=== PATIENT | male | born 1990 | race African-American/Black ===

== ENCOUNTER 2017-01-09 21:39 | Emergency (ER) | payer BC | END 2017-01-09 23:00 | disposition left against medical advice (07) | LOC: ER 21:39 | DX: Z53.21 Procedure and treatment not carried out due to patient leaving prior to being seen by health care provider (principal) ==

== ENCOUNTER 2017-02-11 06:18 | Emergency (ER) | payer BC ==
[2017-02-11] MEDS ORDERED: VANCOMYCIN HCL INJ 1000 MG VIAL IV ONE (07:20)
[2017-02-11] MEDS ORDERED: NORMAL SALINE 1000 ML 1,000 ML IV ONE (07:20)
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
[2017-02-11] MEDS ORDERED: ACETAMINOPHEN 325 MG TABLET PO ONE (07:30)
[2017-02-11] MEDS ORDERED: IBUPROFEN 600 MG TABLET PO ONE (07:30)
[2017-02-11 08:27] LABS: ABSOLUTE EOSINOPHILS # (AUTO) 0.1 10^3/uL (0.0-0.6); ABSOLUTE LYMPHOCYTES (AUTO) 1.6 10^3/uL (0.5-4.7); ABSOLUTE MONOCYTES (AUTO) 1.6 10^3/uL (0.1-1.4); ABSOLUTE NEUT (AUTO) 10.6 10^3/uL (1.7-8.2); BASOPHILS % (AUTO) 0.3 % (0-2); EOSINOPHILS % (AUTO) 0.4 % (0-6); HEMATOCRIT 42.9 % (37.9-51.0); HEMOGLOBIN 14.5 g/dL (13.5-17.0); HGB HCT DIFFERENCE 0.6; LYMPHOCYTES % (AUTO) 11.6 % (13-45); MEAN CORPUSCULAR HEMOGLOBIN 29.9 pg (27.0-33.4); MEAN CORPUSCULAR HGB CONC 33.8 g/dL (32.0-36.0); MEAN CORPUSCULAR VOLUME 89 fl (80-97); MONOCYTES % (AUTO) 11.4 % (3-13); RED BLOOD COUNT 4.85 10^6/uL (4.35-5.55); RED CELL DISTRIBUTION WIDTH 14.2 % (11.5-14.0); SEGMENTED NEUTROPHILS % (AUTO) 76.3 % (42-78); WHITE BLOOD COUNT 13.8 10^3/uL (4.0-10.5)
[2017-02-11 08:43] LABS: ALANINE AMINOTRANSFERASE 30 U/L (21-72); ALBUMIN 4.4 g/dL (3.5-5.0); ALKALINE PHOSPHATASE 74 U/L (38-126); ANION GAP 14 (5-19); ASPARTATE AMINO TRANSFERASE 25 U/L (17-59); BILIRUBIN,DIRECT 0.4 mg/dL (0.0-0.4); BILIRUBIN,TOTAL 0.9 mg/dL (0.2-1.3); BLOOD UREA NITROGEN 11 mg/dL (7-20); CALCIUM 9.1 mg/dL (8.4-10.2); CARBON DIOXIDE 28 mmol/L (22-30); CHLORIDE 100 mmol/L (98-107); CREATINE KINASE 391 U/L (55-170); GLUCOSE 88 mg/dL (75-110); POTASSIUM 3.4 mmol/L (3.6-5.0); SODIUM 142.2 mmol/L (137-145); TOTAL PROTEIN 7.5 g/dL (6.3-8.2)
--- NOTE | 2017-02-11 09:42 | RADIOLOGY REPORT (SQ) ---
EXAM DESCRIPTION: ELBOW LEFT AP/LATERAL COMPLETED DATE/TIME: 02/11/2017 9:33 am REASON FOR STUDY: swelling, possible FB COMPARISON: None. NUMBER OF VIEWS: Four views left elbow. LIMITATIONS: None. FINDINGS: There is no acute or significant bone, joint or soft tissue abnormality. OTHER: No other significant finding. IMPRESSION: NORMAL STUDY. TECHNICAL DOCUMENTATION: JOB ID: [id number]
[2017-02-11 10:37] VITALS: BP 132/89
== END 2017-02-11 10:20 | disposition home or self-care (01) ==
LOC: ER 06:18
DX: L03.114 Cellulitis of left upper limb (principal); F14.10 Cocaine abuse, uncomplicated; R00.0 Tachycardia, unspecified
CPT/HCPCS: 99284; 96365; 36415; 87040; 82550; 85025; 80053; 73070; J7030; J3370

== ENCOUNTER 2017-02-12 14:57 | Observation (INO) | payer SELFPAY ==
[~2017-02-12 14:57] MED LIST: SUCCINYLCHOLINE CHLORIDE INJ 200 MG/10 ML VIAL ONE
[2017-02-12] MEDS ORDERED: RINGERS SOLUTION,LACTATED 1,000 ML IV ONE (15:41)
--- NOTE | 2017-02-12 15:43 | ER Document Report ---
ED Medical Screen (RME) - General Chief Complaint: Abscess Recheck Stated Complaint: LEFT ARM PAIN Time Seen by Provider: 02/12/17 15:41 Notes: Patient has an infected left arm. He tried to inject cocaine in his left antecubital fossa and something did not work right. It started swelling Monday and he came here yesterday and was given IV antibiotics and a prescription for antibiotics to take at home. However, patient says the redness and swelling and pain has increased. TRAVEL OUTSIDE OF THE [place] IN LAST 30 DAYS: No - Related Data Allergies/Adverse Reactions: No Known Allergies Allergy (Verified 02/12/17 15:22) Past Medical History - Social History Chew tobacco use (# tins/day): No Frequency of alcohol use: Occasional Drug Abuse: Cocaine Renal/ Medical History: Denies: Hx Peritoneal Dialysis Physical Exam - Vital signs Vitals: Temp Pulse Resp BP Pulse Ox 97.9 F 112 H 16 129/80 H 97 02/12/17 15:22 02/12/17 15:22 02/12/17 15:22 02/12/17 15:22 02/12/17 15:22 Course - Vital Signs Vital signs: Temp Pulse Resp BP Pulse Ox 97.9 F 112 H 16 129/80 H 97 02/12/17 15:22 02/12/17 15:22 02/12/17 15:22 02/12/17 15:22 02/12/17 15:22
[2017-02-12 16:30] LABS: ABSOLUTE BASOPHILS # (AUTO) 0.1 10^3/uL (0.0-0.2); ABSOLUTE EOSINOPHILS # (AUTO) 0.2 10^3/uL (0.0-0.6); ABSOLUTE LYMPHOCYTES (AUTO) 1.8 10^3/uL (0.5-4.7); ABSOLUTE NEUT (AUTO) 10.6 10^3/uL (1.7-8.2); BASOPHILS % (AUTO) 0.5 % (0-2); EOSINOPHILS % (AUTO) 1.6 % (0-6); HEMATOCRIT 40.6 % (37.9-51.0); HEMOGLOBIN 13.5 g/dL (13.5-17.0); HGB HCT DIFFERENCE -0.1; LYMPHOCYTES % (AUTO) 13.4 % (13-45); MEAN CORPUSCULAR HGB CONC 33.2 g/dL (32.0-36.0); MEAN CORPUSCULAR VOLUME 87 fl (80-97); MONOCYTES % (AUTO) 7.4 % (3-13); RED BLOOD COUNT 4.66 10^6/uL (4.35-5.55); RED CELL DISTRIBUTION WIDTH 14.3 % (11.5-14.0); SEGMENTED NEUTROPHILS % (AUTO) 77.1 % (42-78); WHITE BLOOD COUNT 13.7 10^3/uL (4.0-10.5)
[2017-02-12 16:41] LABS: ALANINE AMINOTRANSFERASE 32 U/L (21-72); ALBUMIN 4.3 g/dL (3.5-5.0); ALKALINE PHOSPHATASE 80 U/L (38-126); ASPARTATE AMINO TRANSFERASE 27 U/L (17-59); BILIRUBIN,DIRECT 0.5 mg/dL (0.0-0.4); BILIRUBIN,TOTAL 0.6 mg/dL (0.2-1.3); BLOOD UREA NITROGEN 12 mg/dL (7-20); CALCIUM 9.7 mg/dL (8.4-10.2); CARBON DIOXIDE 27 mmol/L (22-30); CREATININE RESULT 0.75 mg/dL (0.52-1.25); GLUCOSE 89 mg/dL (75-110); TOTAL PROTEIN 7.5 g/dL (6.3-8.2)
[2017-02-12 16:42] LABS: ANION GAP 15 (5-19); CHLORIDE 100 mmol/L (98-107); SODIUM 141.9 mmol/L (137-145)
[2017-02-12] MEDS ORDERED: VANCOMYCIN HCL INJ 1000 MG VIAL IV ONE (17:36)
[2017-02-12] MEDS ORDERED: AMPICILLIN SOD/SULBACTAM 3 GM VIAL IV ONE (17:36)
--- NOTE | 2017-02-12 18:47 | ER Document Report ---
ED General - General Chief Complaint: Abscess Recheck Stated Complaint: LEFT ARM PAIN Time Seen by Provider: 02/12/17 15:41 TRAVEL OUTSIDE OF THE [place] IN LAST 30 DAYS: No - HPI Patient complains to provider of: Left arm abscess Notes: Patient coming in for left arm abscess. Patient states yesterday was trying to shoot cocaine missed came in today prior for our abscess was given antibiotics. Patient states he did not have the antibiotic filled return to the ER due to increased swelling and redness to his arm. Patient denies fevers chills nausea vomiting denies any other drug use. - Related Data Allergies/Adverse Reactions: No Known Allergies Allergy (Verified 02/12/17 15:22) Past Medical History - Social History Smoking Status: Current Every Day Smoker Chew tobacco use (# tins/day): No Frequency of alcohol use: Occasional Drug Abuse: Cocaine Family History: Reviewed & Not Pertinent Patient has suicidal ideation: No Patient has homicidal ideation: No Renal/ Medical History: Denies: Hx Peritoneal Dialysis Review of Systems - Review of Systems Constitutional: No symptoms reported EENT: No symptoms reported Cardiovascular: No symptoms reported Respiratory: No symptoms reported Gastrointestinal: No symptoms reported Genitourinary: No symptoms reported Male Genitourinary: No symptoms reported Musculoskeletal: Other - Left arm abscess Skin: No symptoms reported Hematologic/Lymphatic: No symptoms reported Neurological/Psychological: No symptoms reported Physical Exam - Vital signs Vitals: Temp Pulse Resp BP Pulse Ox 97.9 F 112 H 16 129/80 H 97 02/12/17 15:22 02/12/17 15:22 02/12/17 15:22 02/12/17 15:22 02/12/17 15:22 Interpretation: Normal - General General appearance: Appears well, Alert - HEENT Head: Normocephalic, Atraumatic Eyes: Normal Pupils: PERRL - Respiratory Respiratory status: No respiratory distress Chest status: Nontender Breath sounds: Normal Chest palpation: Normal - Cardiovascular Rhythm: Regular Heart sounds: Normal auscultation Murmur: No - Abdominal Inspection: Normal Distension: No distension Bowel sounds: Normal Tenderness: Nontender Organomegaly: No organomegaly - Back Back: Normal, Nontender - Extremities General upper extremity: Normal color, Normal temperature, Other - Patient's left arm is considerably swollen with erythema and redness from mid forearm to mid bicep. There is an area in the antecubital fossa that is draining some pus bedside ultrasound does confirm abscess formation with vasculature going through the abscess. General lower extremity: Normal inspection, Nontender, Normal color, Normal ROM , Normal temperature, Normal weight bearing. No: Sindhu's sign - Neurological Neuro grossly intact: Yes Cognition: Normal Orientation: AAOx4 [place] Coma Scale Eye Opening: Spontaneous [place] Coma Scale Verbal: Oriented [place] Coma Scale Motor: Obeys Commands [place] Coma Scale Total: 15 Speech: Normal Motor strength normal: LUE, RUE, LLE, RLE Sensory: Normal - Psychological Associated symptoms: Normal affect, Normal mood - Skin Skin Temperature: Warm Skin Moisture: Dry Skin Color: Normal Course - Re-evaluation Re-evalutation: 02/12/17 18:46 Patient with complex abscess discussed with surgery will have general surgery evaluate and I&D the abscess. - Vital Signs Vital signs: Temp Pulse Resp BP Pulse Ox 97.9 F 112 H 16 129/80 H 97 02/12/17 15:22 02/12/17 15:22 02/12/17 15:22 02/12/17 15:22 02/12/17 15:22 - Laboratory Result Diagrams: 02/12/17 16:05 02/12/17 16:05 Laboratory results interpreted by me: 02/12/17 02/12/17 16:05 16:05 WBC 13.7 H RDW 14.3 H Absolute Neutrophils 10.6 H Direct Bilirubin 0.5 H Discharge - Discharge Clinical Impression: Drug abuse, Left arm cellulitis, Abscess of left arm Condition: Good Disposition: ADMITTED OBSERVATION Admitting Provider: Surgicalist - [facility] Admitted: OR
[2017-02-12] MEDS ORDERED: BUPIVACAINE HCL 0.25 % INJ/PF (2.5 MG/1 ML) 30 ML VIAL ONE (18:51)
[2017-02-12] MEDS ORDERED: MIDAZOLAM 2 MG/2 ML INJ ONE (19:27)
[2017-02-12] MEDS ORDERED: FENTANYL CITRATE INJ/PF 100 MCG/2 ML AMPUL ONE (19:27)
[2017-02-12] MEDS ORDERED: MORPHINE SULFATE 10 MG/ML INJ ONE (19:28)
[2017-02-12] MEDS ORDERED: ONDANSETRON HCL INJ/PF 4 MG/2 ML SDV ONE (19:28)
[2017-02-12] MEDS ORDERED: PROPOFOL INJ 200 MG/20 ML VIAL IV ONE (19:28)
[2017-02-12] MEDS ORDERED: DEXAMETHASONE SOD PHOSPHATE INJ 4 MG/1 ML VIAL ONE (19:28)
[2017-02-12] MEDS ORDERED: OXYCODONE-ACETAMINOPHEN 5-325 MG TABLET PO PRN ×2 (20:17)
[2017-02-12] MEDS ORDERED: MORPHINE SULFATE 10 MG/ML INJ IV PRN (20:17)
[2017-02-12] MEDS ORDERED: PROMETHAZINE HCL INJ 25 MG/1 ML VIAL IV PRN ×2 (20:17)
[2017-02-12] MEDS ORDERED: DIPHENHYDRAMINE HCL 50 MG/ML VIAL IV PRN (20:17)
[2017-02-12] MEDS ORDERED: FENTANYL CITRATE INJ/PF 100 MCG/2 ML AMPUL IV PRN ×3 (20:17)
[2017-02-12] MEDS ORDERED: MEPERIDINE HCL/PF INJ 25 MG/1 ML DISP.SYRIN IV PRN (20:17)
--- NOTE | 2017-02-12 20:28 | OPERATIVE REPORT E ---
Operative Report NAME: DONG PITT : 1990 AGE: 27Y DATE OF SURGERY: 02/12/2017 ROOM: ED16 PREOPERATIVE DIAGNOSIS: Left forearm abscess and cellulitis. POSTOPERATIVE DIAGNOSIS: Left forearm abscess and cellulitis. OPERATION: Incision and drainage of the left forearm abscess. SURGEON: CRISELDA COX M.D. ANESTHESIA: General. BLOOD LOSS: Less than 5 mL. TISSUE REMOVED OR ALTERED: Pus for culture. HISTORY AND INDICATION: The patient is an intravenous drug abuser who developed an abscess and came to the emergency room and needed to have drainage done. Explained about indications, operation, risks, benefits and complications including but not limited to infection, bleeding, pain, reinfection, need for reoperation and the risk of limb loss were also explained. He was taken to the operating room with informed consent. DESCRIPTION OF OPERATION: Under general anesthesia , He was given antibiotic already. The left forearm was cleaned and draped to a sterile field. An incision was made just below the left antecubital fossa. The skin and subcutaneous tissue were opened. At the subcutaneous level, a large abscess cavity was opened and drained completely and thoroughly hemostatic. The wound was irrigated. Now it was completely clean. Dressings were applied and the patient tolerated the procedure well and taken to the recovery room in stable condition. DICTATING PHYSICIAN: CRISELDA COX M.D. [id number] PHY#: [id number] ID: [id number] JOB#: [id number] ACCT: [id number] cc:CRISELDA COX M.D. > [facility]
[2017-02-12] MEDS ORDERED: AMPICILLIN SOD/SULBACTAM 3 GM VIAL IV PRN (20:33)
[2017-02-12] MEDS ORDERED: KETOROLAC TROMETHAMINE INJ/PF 30 MG/1 ML SDV IV PRN (20:34)
[2017-02-12] MEDS ORDERED: ACETAMINOPHEN 325 MG TABLET PO PRN (20:34)
--- NOTE | 2017-02-12 21:53 | HISTORY AND PHYSICAL E ---
History and Physical NAME: DONG PITT : 1990 AGE: 27Y ADMITTED: 02/12/2017 ROOM: 416 CHIEF COMPLAINT: A 27-year-old male patient presented to the emergency room with a history of injection of the cocaine into the left forearm. He developed swelling and pain and redness in left forearm. The emergency room physician evaluated and because of the site of the abscess, they are not willing to drain it in the emergency room and needed a surgical consultation. HISTORY OF PRESENT ILLNESS: As described. PAST MEDICAL HISTORY: History of substance abuse in the past. PAST SURGICAL HISTORY: None. REVIEW OF SYSTEMS: As per examination. PHYSICAL EXAMINATION: GENERAL: A 27-year-old male patient not in any distress. VITAL SIGNS: Afebrile. Heart rate of 98-100. Blood pressure normal at around 120s systolic. HEAD/NECK: Revealed no lymphadenopathy or masses. CHEST: Both lungs are clear to auscultation. CARDIOVASCULAR: Heart sounds are regular, no murmurs or gallops. ABDOMEN: Soft and nontender. EXTREMITIES: Warm and well perfused. On the left forearm antecubital fossa, there is redness, fluctuant abscess present. IMPRESSION OVERALL: Cellulitis of left forearm and abscess of antecubital fossa. PLAN: IV antibiotic, incisional drainage under anesthesia, and then discharge home with oral antibiotic. DICTATING PHYSICIAN: CRISELDA COX M.D. [id number] PHY#: [id number] ID: [id number] JOB#: [id number] ACCT: [id number] cc:CRISELDA COX M.D. >
[2017-02-13] MEDS: AMPICILLIN SODIUM/SULBACTAM NA 3 GM in NORMAL SALINE 100 ML IV SCH ×3 (00:38→13:31)
--- NOTE | 2017-02-13 02:43 | DISCHARGE SUMMARY E ---
Discharge Summary NAME: DONG PITT : 1990 AGE: 27Y ADMITTED: 02/12/2017 DISCHARGED: ADMITTING DIAGNOSIS: Abscess and cellulitis of the left arm due to intravenous drug abuse. FINAL DIAGNOSIS: Abscess and cellulitis of the left arm due to intravenous drug abuse, status post incision and drainage of abscess. HOSPITAL COURSE: The patient is being admitted to observation to be given antibiotics, a couple of doses tonight and then tomorrow morning he will be discharged home with pain medication, tramadol for the pain, and then Augmentin oral antibiotic for a week. To follow up in the surgical clinic in 1 week. DICTATING PHYSICIAN: CRISELDA COX M.D. [id number] [facility]#: [id number] 2004 ID: [id number] JOB#: [id number] ACCT: [id number] cc:Goldy MERAZ MD, M.D. JAMES GARRETT, M.D. >
[2017-02-13 08:54] VITALS: BP 129/80
== END 2017-02-13 15:32 | disposition home or self-care (01) ==
LOC: ER 14:57 → EH 19:27 → 4W 21:10
PROVIDERS: ATTEND Colon & Rectal Surgery
PROC: 0J9F0ZZ Drainage of Left Upper Arm Subcutaneous Tissue and Fascia, Open Approach (ICD-10-PCS; principal; 2017-02-12 19:30)
DX: L02.414 Cutaneous abscess of left upper limb (principal); L03.114 Cellulitis of left upper limb; F14.10 Cocaine abuse, uncomplicated; F17.200 Nicotine dependence, unspecified, uncomplicated
CPT/HCPCS: 99284; 96365; 96366; 96367; 96368; 36415; 87040; 85025; 80053; 10060; G0378 ×2; J2250; J1100; J3010; J0295 ×2; J2270; J0330; J2405; J7120; J2704; J3370; 400